=== PATIENT | female | born 1970 | race Caucasian/White ===

== ENCOUNTER → 2023-07-23 12:54 | Outpatient (REF) | payer BC, SELFPAY | LOC: WDC 12:54 | PROVIDERS: ATTENDING PHYSICIAN Family Medicine | DX: Z12.31 Encounter for screening mammogram for malignant neoplasm of breast (principal) | CPT/HCPCS: 77063; 77067 ==

== ENCOUNTER 2023-12-29 10:36 | Emergency (ER) | payer BC, SELFPAY ==
[2023-12-29 10:45] VITALS: BP 118/86
--- NOTE | 2023-12-29 11:41 | ED.SKININJ ---
HPI-Injury
General
Chief Complaint: Skin Problem
Source: patient
Exam Limitations: none
Time Seen by Provider: 12/29/23 11:22
History of Present Illness-Injury
Initial Injury comments:
53-year-old female presents with a weeks worth of an itchy rash that started on her trunk now spread to her upper chest and arms and legs. She states her roommate is also developing a rash similar to this. She denies a fever cough or shortness of
breath. No new exposures including detergents clothing laundry. She saw roll bucker last Friday and the biopsy was performed but the result is not back yet. 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 She has been using
clobetasol cream without any significant relief. No other complaints.
Past History
Past History
ED Past Medical History: None
Social History
Tobacco: Non-smoker
Alcohol: None
Family History
Family History: Other (Mom with colon cancer)
Phy Exam
Physical Exam
Physical Exam:
General: Well appearing female NAD
HEENT: NC/AT
skin: Pruritic slightly raised papular rash in a linear fashion over the trunk and arms. No underlying fluctuance or induration. No crust formation. No tenderness. No involvement in between the fingers
Extremities: No cyanosis
Course
Vital Signs
Initial and Last Documented VS:
Initial Vital Signs
Temp Pulse Resp BP Pulse Ox
98.1 F 81 18 118/86 98
12/29/23 10:45 12/29/23 10:45 12/29/23 10:45 12/29/23 10:45 12/29/23 10:45
Last Documented Vital Signs
Temp Pulse Resp BP Pulse Ox
98.1 F 81 18 118/86 98
12/29/23 10:45 12/29/23 10:45 12/29/23 10:45 12/29/23 10:45 12/29/23 10:45
MDM/Problems Addressed
Differential Diagnosis Includes:
Itchy rash over the trunk legs arms and neck. This is not made better with topical steroid. His back is getting worse. Patient search their house for any type of bedbugs and was unsuccessful finding any. She denies sleeping in any new areas.
Question possible scabies given the nature of the rash. Do not suspect underlying infectious process. No need for any antibiotic. Will prescribe permethrin cream with refills if needed. She will follow-up with dermatology.
*Critical Care Note
Total Time (30-74mins, 75-104mins- exclusive of procedures): Not Applicable
ED Attending Note
-
Portions of this chart may have been created with voice recognition software.� Occasional wrong word or��sound alike� substitutions may have occurred due to the inherent limitations of voice recognition software.
Discharge Plan
Departure
Patient Disposition: Home (Routine Discharge)
Date of Disposition: 12/29/23
Time of Disposition: 11:45
Patient with high blood pressure during this ER visit?: No
Discharge Problem:
Rash
Instructions: Scabies, Skin Rash (DC)
Prescriptions:
New
permethrin 5 % cream
1 applic topical Q7D Qty: 60 3RF
No Action
Claritin:
Nasonex
ondansetron HCl 4 MG tablet
4 mg PO TIDPRN PRN (Reason: nausea and vomiting) Qty: 15 0RF
meclizine 25 MG tablet
25 mg PO Q8HPRN PRN (Reason: nausea or vertigo) Qty: 21 0RF
Activity Restrictions/Additional Instructions:
Use cream as directed. Continue with steroid medicine topically. Continue to follow-up with dermatology. Return if worse otherwise follow-up with your roll bucker.
Interventions
Interventions:
*Risk Screen - Suicide Last Done: 12/29/23 10:45
*General Assessment Last Done: 12/29/23 10:45
*Neglect/Abuse Screening Last Done: 12/29/23 10:45
ED-Skin Assessment Last Done: 12/29/23 11:11
Discharge Date and Time
Print Language: SAMI
== END 2023-12-29 12:12 | disposition home or self-care (01) ==
LOC: EMR 10:36
PROVIDERS: EMERGENCY PHYSICIAN Student in an Organized Health Care Education/Training Program; FAMILY PHYSICIAN Family Medicine
DX: R21 Rash and other nonspecific skin eruption (principal); Z80.0 Family history of malignant neoplasm of digestive organs
CPT/HCPCS: 99282

== ENCOUNTER → 2024-08-02 15:17 | Outpatient (REF) | payer BC, SELFPAY | LOC: WDC 15:17 | PROVIDERS: ATTENDING PHYSICIAN Family Medicine | DX: Z12.31 Encounter for screening mammogram for malignant neoplasm of breast (principal) | CPT/HCPCS: 77063; 77067 ==

== ENCOUNTER → 2024-12-20 18:28 | Outpatient (REF) | payer BC, SELFPAY | LOC: RAD 18:28 | PROVIDERS: ATTENDING PHYSICIAN Family Medicine; FAMILY PHYSICIAN Family Medicine | DX: R22.32 Localized swelling, mass and lump, left upper limb (principal) | CPT/HCPCS: 73120 ==

== ENCOUNTER 2025-03-07 06:27 | Day surgery (SDC) | payer BC, SELFPAY | END 2025-03-07 09:57 | disposition home or self-care (01) | LOC: GI 06:27 | PROVIDERS: ATTENDING PHYSICIAN Internal Medicine; FAMILY PHYSICIAN Family Medicine | DX: Z12.11 Encounter for screening for malignant neoplasm of colon (principal); K64.9 Unspecified hemorrhoids; Z80.0 Family history of malignant neoplasm of digestive organs | CPT/HCPCS: G0105 ==